=== PATIENT | female | born 1980 | race Caucasian/White ===

== ENCOUNTER 2020-11-04 06:00 | Emergency (ER) | payer SELFPAY ==
[~2020-11-04] VITALS: Ht 165.1 cm; Wt 84.1 kg
[~2020-11-04 06:00] MED LIST: CALC500T37; DOCO100C3 PO; PNV1TABL54 PO
[2020-11-04 06:09] VITALS: BP 116/63
== END 2020-11-04 06:46 | disposition left against medical advice (07) ==
LOC: EMS 06:09
DX: R07.9 Chest pain, unspecified (principal); Z53.21 Procedure and treatment not carried out due to patient leaving prior to being seen by health care provider